=== PATIENT | female | born 1980 ===

== ENCOUNTER 2023-02-13 12:00 | Inpatient (IN) | payer BC ==
[~2023-02-13] VITALS: Ht 162.6 cm; Wt 69.4 kg
[2023-02-28] MEDS ORDERED: PRENATAL TABLE1 EAC1 PO (06:15)
== END 2023-03-02 14:24 | disposition home or self-care (01) | DRG 807 ==
LOC: LDR 02-28 05:34 → OB/GYN 02-28 16:21
PROVIDERS: ADMIT Obstetrics & Gynecology; ATTEND Obstetrics & Gynecology
PROC: 10E0XZZ Delivery of Products of Conception, External Approach (ICD-10-PCS; principal; 2023-02-28)
PROC: 4A1HXCZ Monitoring of Products of Conception, Cardiac Rate, External Approach (ICD-10-PCS; 2023-02-28)
DX: O80 Encounter for full-term uncomplicated delivery (principal); Z37.0 Single live birth; Z3A.39 39 weeks gestation of pregnancy; Z20.822 Contact with and (suspected) exposure to COVID-19